=== PATIENT | female | born 1940 | race Caucasian/White ===

== ENCOUNTER 2018-10-20 11:08 | Emergency (ER) | payer OTHER ==
[~2018-10-20] VITALS: Ht 165.1 cm; Wt 64.9 kg
[2018-10-20 12:04] VITALS: Ht 165.1 cm; Wt 64.9 kg
[2018-10-20 14:14] LABS: BASOPHIL % 0.3 % (0-2); PLATELET COUNT 320 x10^3mcL (130-400); RED CELL DISTRIBUTION WIDTH 11.8 % (11.5-14.5)
[2018-10-20 14:25] LABS: CALCIUM 9.2 mg/dL (8.5-10.1); CARBON DIOXIDE 29.6 mmol/L (21-32); CHLORIDE SERUM 91 mmol/L (98-107); GLUCOSE SERUM 105 mg/dL (74-106); POTASSIUM SERUM 3.5 mmol/L (3.5-5.1); SODIUM SERUM 129 mmol/L (136-145)
[2018-10-20 14:30] LABS: microscopic required? YES; urine erythrocyte TRACE (NEGATIVE)
[2018-10-20 14:30] LABS: ALBUMIN 3.6 g/dL (3.4-5.0); ALKALINE PHOSPHATASE 70 U/L (46-116); ALT/SGPT 26 U/L (14-59); AST/SGOT 32 U/L (15-37); BILIRUBIN TOTAL 0.2 mg/dL (0.20-1.00); CHOLESTEROL 191 mg/dL (<200); CHOLESTEROL/HDL RATIO 5.3; HDL CHOLESTEROL 36 mg/dL (40-60); LIPASE 82 IU/L (73-393); TOTAL PROTEIN, SERUM 7.6 g/dL (6.4-8.2); TRIGLYCERIDES 112 mg/dL (<150)
[2018-10-20 14:41] LABS: FREE T4 1.28 ng/dL (0.76-1.46); FREE THYROXINE INDEX 3.7 ug/dL (1.4-4.5); T4(THYROXINE) 9.8 ug/dL (4.7-13.3)
[2018-10-20 14:50] LABS: T3 TOTAL 0.9 ng/mL
[2018-10-20 16:44] VITALS: BP 128/59
== END 2018-10-20 16:44 | disposition home or self-care (01) ==
LOC: ED 11:08
PROVIDERS: Specialist
DX: E11.649 Type 2 diabetes mellitus with hypoglycemia without coma (principal); E87.1 Hypo-osmolality and hyponatremia; I10 Essential (primary) hypertension; E78.00 Pure hypercholesterolemia, unspecified
CPT/HCPCS: 82962; 83880; 84439; J7030

== ENCOUNTER 2018-10-25 21:11 | Inpatient (IN) | payer OTHER ==
[~2018-10-25] VITALS: Ht 162.6 cm; Wt 60.6 kg
[2018-10-25 21:34] VITALS: Ht 162.6 cm; Wt 60.6 kg
[2018-10-25 22:13] LABS: BASOPHIL % 0.3 % (0-2); PLATELET COUNT 275 x10^3mcL (130-400); RED CELL DISTRIBUTION WIDTH 13.5 % (11.5-14.5)
[2018-10-25 22:23] LABS: CALCIUM 9.3 mg/dL (8.5-10.1); CARBON DIOXIDE 30.3 mmol/L (21-32); CHLORIDE SERUM 95 mmol/L (98-107); CREATININE SERUM 1.5 mg/dL (0.6-1.0); GLUCOSE SERUM 248 mg/dL (74-106); POTASSIUM SERUM 4.1 mmol/L (3.5-5.1); SODIUM SERUM 135 mmol/L (136-145)
[2018-10-25 22:27] LABS: ALKALINE PHOSPHATASE 76 U/L (46-116); ALT/SGPT 28 U/L (14-59); AST/SGOT 28 U/L (15-37); BILIRUBIN TOTAL 0.39 mg/dL (0.20-1.00); TOTAL PROTEIN, SERUM 7.4 g/dL (6.4-8.2)
[2018-10-25 22:28] LABS: ALBUMIN 3.3 g/dL (3.4-5.0)
[2018-10-25 22:52] LABS: microscopic required? NO
[2018-10-25 23:24] LABS: UA SPECIFIC GRAVITY <=1.005 (1.005-1.035); urine erythrocyte NEGATIVE (NEGATIVE)
[2018-10-25] MEDS ORDERED: ASPIR 8181 MG PO (23:46)
[2018-10-25] MEDS ORDERED: LEVEMIR FLEX100 U/M1 SC ×2 (23:47→23:48)
[2018-10-25] MEDS ORDERED: LISINOPRIL40 MG PO (23:48)
[2018-10-25] MEDS ORDERED: HYDROCHLOROTHIA50 MG PO (23:49)
[2018-10-25] MEDS ORDERED: METFORMIN HCL850 MG PO (23:49)
[2018-10-25] MEDS ORDERED: ATENOLOL50 MG PO (23:50)
[2018-10-26] VITALS (7 sets, daily range): BP systolic 136–160; BP diastolic 51–65
[2018-10-26 06:51] LABS: CALCIUM 9.2 mg/dL (8.5-10.1); CARBON DIOXIDE 27.3 mmol/L (21-32); CHLORIDE SERUM 100 mmol/L (98-107); CREATININE SERUM 1.2 mg/dL (0.6-1.0); GLUCOSE SERUM 231 mg/dL (74-106); POTASSIUM SERUM 4.6 mmol/L (3.5-5.1); SODIUM SERUM 139 mmol/L (136-145)
[2018-10-27 05:24] VITALS: BP 146/66
[2018-10-27 09:11] VITALS: BP 140/66
[2018-10-27 17:12] VITALS: BP 136/61
[2018-10-27 20:02] VITALS: BP 114/57
[2018-10-28 05:45] VITALS: BP 133/62
[2018-10-28 10:29] VITALS: BP 126/57
[2018-10-28 16:08] VITALS: BP 126/57
[2018-10-28 21:05] VITALS: BP 142/67
[2018-10-29 05:41] VITALS: BP 144/61
[2018-10-29 09:22] VITALS: BP 122/45
== END 2018-10-29 09:26 | DRG 640 ==
LOC: ED 21:11 → MU 23:45
PROVIDERS: Emergency Medicine; ADMIT Internal Medicine
DX: E86.0 Dehydration (principal); G93.41 Metabolic encephalopathy; E11.9 Type 2 diabetes mellitus without complications; I10 Essential (primary) hypertension; H40.9 Unspecified glaucoma; F03.90 Unspecified dementia, unspecified severity, without behavioral disturbance, psychotic disturbance, mood disturbance, and anxiety; M19.90 Unspecified osteoarthritis, unspecified site; Z79.82 Long term (current) use of aspirin; Z79.4 Long term (current) use of insulin; Z68.25 Body mass index [BMI] 25.0-25.9, adult; Z79.84 Long term (current) use of oral hypoglycemic drugs
CPT/HCPCS: 82962; 90658; 97110-GP; 97116-GP; 97530-GP; J1815; J7030; Q0092